=== PATIENT | male | born 1975 | race Caucasian/White ===

== ENCOUNTER 2017-06-24 15:27 | Emergency (ER) | payer OTHER ==
[~2017-06-24] VITALS: Ht 193 cm; Wt 95.3 kg
[~2017-06-24 15:27] MED LIST: ATIVAN1 MG PO; CELEXA20 MG PO; LORTAB 5/500 501 TAB PO; TRAZODONE 50MG50 MG PO
--- OUTSIDE RECORDS SUMMARY | 2017-06-24 15:32 | External Medical Summary Rpt | CCD ---
Author Author , JOHN PAUL MORALES Address Unknown Phone [email or web address] Immunization Name Date Rout CVX Reac Dose Comm Prov Is Faci e tion ent ider Refu lity Give sed n Tdap 09-2 115 999 Hist D203 No D203 , 7-20 oric 45 45 Adso 16 al rbed Info rmat ion - Sour ce Unsp ecif ied
--- OUTSIDE RECORDS SUMMARY | 2017-06-24 15:32 | External Medical Summary Rpt | CCD ---
Author Author [employer] Organization [employer] Address Unknown Phone Unavailable Purpose Continuity of Care Document - through 2016
--- OUTSIDE RECORDS SUMMARY | 2017-06-24 15:32 | External Medical Summary Rpt | CCD ---
Author Author JOHN PAUL Address Unknown Phone john Purpose Continuity of Care Document - 02-13-2017 through 2016
--- OUTSIDE RECORDS SUMMARY | 2017-06-24 15:32 | External Medical Summary Rpt ---
Author Author MARKOLGA Moreira, ANDREW [employer] Organization [employer] Address Unknown Phone Unavailable Results Basic metabolic panel in Blood Observa Value Referen Units Interpr Notes Date ti etation Range Urea 7 - 18 mg/dL Normal No Feb 13 nitrogen informati 2017 2:20 [Mass/vol on in PM ume] in source Serum or data Plasma Calcium 8.5 - mg/dL Normal No Feb 13 [Mass/vol 10.1 informati 2016 2:20 ume] in on in PM Serum or source Plasma data Chloride 98 - 107 mmoL/L Normal No Feb 13 [Moles/vo informati 2016 2:20 lume] in on in PM Serum or source Plasma data Carbon 21.0 - mmoL/L Normal No Feb 13 dioxide, 32.0 informati 2017 2:20 total on in PM [Moles/vo source lume] in data Serum or Plasma Creatinin 0.70 - mg/dL Normal No Feb 13 e 1.30 informati 2017 2:20 [Mass/vol on in PM ume] in source Serum or data Plasma Estimated >60 ML/MIN No REFERENCE Feb 13 informati RANGE: 2017 2:20 glomerula on in >60 PM r source ML/MIN/1. filtratio data 73 SQUARE n rate METERSIf (GF this patient is -A merican, then multiply theresult by 1.210. Glucose 74 - 106 mg/dL Normal No Feb 13 [Mass/vol informati 2017 2:20 ume] in on in PM Serum or source Plasma data Potassium 3.5 - 5.1 mmoL/L Normal No Feb 13 informati 2017 2:20 [Moles/vo on in PM lume] in source Serum or data Plasma Sodium 136 - 145 mmoL/L Normal No Feb 13 [Moles/vo informati 2017 2:20 lume] in on in PM Serum or source Plasma data CBC W Auto Differential panel in Blood Observa Value Referen Units Interpr Notes Date ti etation Range Basophils 0 - 0.2 K/MM3 Normal No Feb 132016 2:20 [#/volume on in PM ] in source Blood by data Automated count Basophils 0.1 - 2.0 % Normal No Feb 7 /100 inform2016 2:20 leukocyte on in PM s in source Blood by data Automated count Eosinophi 0.0 - 0.4 K/mm3 Normal No Feb 13 ls 2016 2:20 [#/volume on in PM ] in source Blood by data Automated count Eosinophi 0.1 - % Normal No Feb 13 ls/100 12.0 informati 2016 2:20 leukocyte on in PM s in source Blood by data Automated count Granulocy 1.3 - 8.0 K/mm3 Normal No Feb 13 bill inform2016 2:20 [#/volume on in PM ] in source Blood by data Automated count Granulocy 37.0 - % Normal No Feb 13 bill/100 80.0 inform2016 2:20 leukocyte on in PM s in source Blood by data Automated count Hematocri 42.0 - % Normal No Feb 13 t [Volume 52.0 2016 2:20 on in PM Fraction] source of Blood data Hemoglobi 14.1 - g/dL Normal No Feb 13 n 18.0 2016 2:20 [Mass/vol on in PM ume] in source Blood data Lymphocyt 0.7 - 4.5 K/mm3 Normal No Feb 13 es 2016 2:20 [#/volume on in PM ] in source Unspecifi data ed specimen by Automated count Lymphocyt 10 - 50 % Normal No Feb 13 es 2016 2:20 [#/volume on in PM ] in source Unspecifi data ed specimen by Automated count Erythrocy 27 - 31.2 pg High No Feb 13 te mean 2016 2:20 corpuscul on in PM ar source hemoglobi data n [Entitic mass] Erythrocy 31.8 - g/dl Normal No Feb 13 te mean 35.4 informati 2016 2:20 corpuscul on in PM ar source hemoglobi data n concentra tion [Mass/vol ume] by Automated count Erythrocy 82.2 - fl High No Feb 13 te mean 97.8 informati 2016 2:20 corpuscul on in PM ar volume source [Entitic data volume] by Automated count Monocytes 0.1 - 1.0 K/mm3 Normal No Feb 13 informati 2017 2:20 [#/volume on in PM ] in source Blood by data Automated count Monocytes 1.7 - 9.3 % Normal No Maxime 7 /100 informati 2017 2:20 leukocyte on in PM s in source Blood by data Automated count Platelet 7.4 - fl Normal No Feb 7 mean 10.4 informati 2016 2:20 volume on in PM [Entitic source volume] data in Blood by Automated count Platelets 142 - 424 K/mm3 Normal No Feb 7 informati 2016 2:20 [#/volume on in PM ] in source Blood data Erythrocy 4.6 - 6.2 M/mm3 Normal No Feb 7 bill informati 2016 2:20 [#/volume on in PM ] in source Amniotic data fluid Erythrocy 11.5 - % Normal No Feb 13 te 17.5 informati 2016 2:20 distribut on in PM ion width source [Entitic data volume] by Automated count Leukocyte 4.8 - K/MM3 Normal No Feb 7 s 10.8 informati 2016 2:20 [#/volume on in PM ] in source Blood data
--- OUTSIDE RECORDS SUMMARY | 2017-06-24 15:32 | External Medical Summary Rpt ---
Author Author MARKOLGA Moreira, ANRDEW [employer] Address Unknown Phone Unavailable [...]
--- OUTSIDE RECORDS SUMMARY | 2017-06-24 15:32 | External Medical Summary Rpt | CCD ---
Author Author , JOHN PAUL MORALES Address Unknown Phone [email or web address] Immunization Name Date Rout CVX Reac Dose Comm Prov Is Faci e tion ent ider Refu lity Give sed n Tdap 09-2 115 999 Hist D203 No D203 , 7-20 oric 45 45 Adso 16 al rbed Info rmat ion - Sour ce Unsp ecif ied
--- OUTSIDE RECORDS SUMMARY | 2017-06-24 15:32 | External Medical Summary Rpt | CCD ---
Author Author JOHN PAUL Address Unknown Phone [email or web address] Purpose Continuity of Care Document - 02-13-2017 through 2016
--- NOTE | 2017-06-24 16:35 | Urgent Treatment Center Report ---
See Addendum History of Present Issue Date/Time Seen by Provider 06/24/17 1635 Visit Reason Pt arrived:Walked Presenting Problem:WAS DX WITH BRONCHITIS LAST SATURDAY BUT DOESNT FEEL ANY BETTER Location if Accident: Onset of symptoms date/time:/ or onset unknown for:MEDICAL HX UNKNOWN Have you (or family members/close friends) recently traveled outside the [place]? N If Yes, where/when: Have you had exposure to infectious disease within the past month? TB? Other? Specify: c/o continued cough, chest congestion and wheezing. No fever, fatigue. occasional body aches. Cough started 10 days ago. No worse. Seen at clinic last week. Dx bronchitis. Rx prednisone BID x 5 days and albuterol inhaler. Hasn 't been using inhaler "except here and there", not when he has noticed wheezing. Tobacco abuse x years. Denies SOA. Was hoping an antibx shot would speed up improvement. "It is a tiny bit better but not much" Source patient Exam Limitations no limitations ALLERGIES Coded Allergies: No Known Allergies (03/01/17) Home Medications Reported Medications CITALOPRAM HYDROBROMIDE (Citalopram HBr) 40 MG PO DAILY TRAZODONE HCL (Trazodone HCl) 50 MG PO QHS History Medical History General Angina: No MT: No Hypertension? No Hyperlipidemia? No COPD? No Asthma? No CVA? No Seizures? No Diabetes? No GB Disease: No MRSA? No TB? No Anxiety? Yes Cancer? No Immunization HX DT/Tetanus 1-4 YRS Surgical Hx Previous Surgery?Y WISDOM TEETH Social History Smoking Hx Smoker: Current Every Day Smoker Tobacco: Yes Type Cigarettes Packs/day 1 1/2 - 2 Packs Alcohol Alcohol: No Review of Systems All Other Systems Reviewed and Negative Constitutional see HPI, denies malaise Eyes denies drainage ENT nose discharge, nose congestion, other (PND). denies: ear pain, throat pain. Respiratory see HPI Cardiovascular denies chest pain Gastrointestinal denies no symptoms reported Musculoskeletal see HPI Skin denies rash Psychiatric/Neurological denies headache Physical Exam Vital Signs Vital Signs Date Time Temp Pulse Resp B/P Pulse O2 O2 Flow FiO2 Ox Delivery Rate 06/24 1546 97.9 74 20 119/79 97 General Appearance normal appearance, no apparent distress Eye Exam - bilateral eye normal exam Ear, Nose, Throat normal ENT inspection (x/ lesion on uvula) Neck non-tender, supple Respiratory Status Yes: trachea midline, chest symmetrical, non productive cough. No: respiratory distress, use of accessory muscles, pain on inspiration, pain on expiration, productive cough. Lung Sounds anterior: wheezing (faint expiratory throughout). posterior: wheezing (faint expiratory throughout). bilateral: wheezing (faint expiratory throughout). Cardiovascular regular rate/rhythm, no peripheral edema, no murmur Neurologic alert, oriented x 3 Mental status normal mood/affect Skin normal color, warm/dry Lymphatic no adenopathy Medical Decision Making LABS/Meds/Orders Pt receiving controlled substance in ED? No Departure Departure Time of Disposition 1645 Disposition DC Home or Self Care(routine) Clinical Impression Primary Impression: Bronchitis Secondary Impressions: Lesion of uvula Condition STABLE Referrals Eyal Fenton MD (Family) Immediately for lesion on uvula but also if no improvement in symptoms over the next 3 days. Return to ER/UTC for new or worsening symptoms if you are not able to get into Dr. Fenton Patient Instructions DI for Acute Bronchitis, DI for Mouth Lesions Additional Instructions * start antibiotic today. Be sure to complete entire prescription even if feeling better. * Monitor Temp. FU if fever develops * humidifier/vaporizer/hot steamy shower * Inhaler every 4-6 hours as needed like we discussed. If unsure how to use it, ask pharmacist to demonstrate how. Should help open airways and improve cough, wheezing, shortness of breath. * Mucinex during the day for your cough and cough suppressant only at night. Be sure to drink lots of water. Insurance may not cover a prescription of mucinex. Might be cheaper to get 400mg tablets and take 2 tablets morning, midday and evening all with lots of water. * Promethazine DM cough syrup will cause drowsiness. Use it only at night. No driving, operating machinery or caring for small children after taking it. * Complete steroids Discharge Counseling Counseled pt/family regarding diagnosis, medications/RX, home care, follow up needs Prescriptions Current Visit Scripts Doxycycline Hyclate (Vibramycin) 100 MG PO BID #20 CAP PROMETHAZINE/DEXTROMETHORPHAN (Promethazine-Dm Syrup) 10 ML PO QHSP PRN cough #240 ML will cause drowsiness at 1651
[2017-06-24] MEDS ORDERED: DOXYCYCLINE HY100 M4 PO (16:51)
[2017-06-24] MEDS ORDERED: PROMETHAZINE D118 ML PO (16:51)
[2017-06-24 16:53] VITALS: BP 119/79
== END 2017-06-24 16:53 | disposition home or self-care (01) ==
LOC: UTC 15:27
DX: J40 Bronchitis, not specified as acute or chronic (principal); F17.210 Nicotine dependence, cigarettes, uncomplicated; K13.70 Unspecified lesions of oral mucosa; Z79.899 Other long term (current) drug therapy